=== PATIENT | male | born 1970 | race Caucasian/White ===

== ENCOUNTER 2022-04-07 15:12 | Emergency (ER) | payer BC, SELFPAY ==
[2022-04-07 15:14] VITALS: BP 158/100; PULSE 105; RESP 14; TEMP 36.8; O2SAT 98; BMI 30.4
--- NOTE | 2022-04-07 15:23 | RAD_ITS ---
EXAM: XR CHEST, 1 VIEW CLINICAL INDICATION: sob TECHNIQUE: Frontal view of the chest. This report was created using [employer] report generation technology. COMPARISON: None. FINDINGS: LUNGS AND PLEURAL SPACES: Unremarkable. No consolidation or edema. No pneumothorax. No effusion. HEART: Unremarkable. Cardiac silhouette not enlarged. MEDIASTINUM: Central airways and mediastinal contour are unremarkable. BONES/JOINTS: Unremarkable. SOFT TISSUES: Unremarkable. RAD/Chest 1 View (Portable) IMPRESSION: No radiographic evidence of acute cardiopulmonary disease. Electronically Signed: Malik Slade MD at 16:22 EDT ,
--- NOTE | 2022-04-07 15:23 | CT_ITS ---
EXAM: CT HEAD WITHOUT INTRAVENOUS CONTRAST CLINICAL INDICATION: confusion TECHNIQUE: Multiple axial images were obtained of the head without intravenous contrast. This CT exam was performed using one or more of the following dose reduction techniques: automated exposure control, adjustment of the mA and/or kV according to patient size, and/or use of iterative reconstruction technique. This report was created using [employer] report generation technology. COMPARISON: None. FINDINGS: BRAIN AND EXTRA-AXIAL SPACES: Unremarkable. No intra- or extra-axial hemorrhage. No evidence of acute infarct. No intracranial mass or mass effect. There is preservation of the rodrigues/white matter interface. Posterior fossa structures are unremarkable. Ventricles are appropriate for age. No hydrocephalus. Basal cisterns are patent. BONES/JOINTS: Unremarkable. No discrete lytic or blastic abnormalities. SINUSES: There is retention cyst or polyp in the right maxillary sinus. MASTOID AIR CELLS: Unremarkable. Clear. ORBITS: Visualized globes, extraocular muscles, optic nerves and retrobulbar fat appear unremarkable. CT/Brain/Head without Contrast IMPRESSION: No acute findings in the head/brain. Electronically Signed: Malik Slade MD at 16:22 EDT ,
--- NOTE | 2022-04-07 15:23 | EKG12_ITS ---
Test Reason : Blood Pressure : / mmHG Vent. Rate : 108 BPM Atrial Rate : 108 BPM P-R Int : 148 ms QRS Dur : 096 ms QT Int : 366 ms P-R-T Axes : 023 -05 020 degrees QTc Int : 490 ms Sinus tachycardia Otherwise normal ECG Confirmed by RADHA GRULLON, TEZ ([id number]), editor newspaper CYNDI SCHUSTER ([id number]) on 04/10/2022 10:49:52 AM Referred By: ISAI Confirmed By:TEZ GARCIA MD
--- NOTE | 2022-04-07 15:32 | EDS_ITS ---
HPI History of Present Illness Chief Complaint: Mental Health Informant: patient and spouse/S.O. Narrative Narrative: Patient brought in by for psychiatric evaluation. He has a history of bipolar disorder and hypertension. He reportedly stopped his medication about 3 weeks ago. He states he chose to stop medication himself. states he has missed his last several doctors appointments and psychiatric appointments. He reports having problems with his memory as well as feeling generalized weakness since stopping his medication. He denies thoughts of hurting himself or anyone else. He does report difficulty with sleep. states that his boss called her twice in the last week stating they found him just sitting in his car and may have been there for several hours. [facility] Medical History (Updated 04/07/22 @ 18:[address] Cecy Mcgill MD) Bipolar disorder Hypertension Home Medications amlodipine 5 mg PO DAILY 04/07/22 [History Last Taken Unknown] lamotrigine [Lamictal] 200 mg PO DAILY 04/07/22 [History Last Taken Unknown] olanzapine 5 mg PO QHS 04/07/22 [History Last Taken Unknown] Allergy/AdvReac Type Severity Reaction Status Date / Time No Known Allergies Allergy Verified 04/07/22 15:13 Surgical History no surgical history no surgical history Social History Smoking Status: Never smoker ROS [facility] ED Constitutional Constitutional ED: Denies chills or fever(s) Eyes Eyes: Denies change in vision ENT ENT ED: Denies sore throat Cardiovascular Cardiovascular: Denies chest pain Respiratory/Chest Respiratory/Chest: Denies cough or dyspnea Gastrointestinal Gastrointestinal: Denies abdominal pain, nausea or vomiting Genitourinary Genitourinary ED: Denies dysuria Musculoskeletal Musculoskeletal: Denies back pain or neck pain Integumentary Denies rash Neurologic Neurologic: Reports weakness; Denies headache(s) Psychiatric Psychiatric: Reports depression; Denies anxiety, suicidal ideation or suicidal thoughts Allergic/Immunologic Allergic/Immunologic ED: Denies urticaria EXAM Physical Exam Const Vital Signs: 04/07/22 15:14 04/07/22 17:36 04/07/22 18:23 Temperature 98.2 F Temperature Source Temporal Pulse Rate 105 H 88 92 Respiratory Rate 14 12 18 Blood Pressure 158/100 H 148/76 H 158/110 H Blood Pressure Mean 119 100 126 Pulse Ox 98 98 99 Oxygen Delivery Method Room Air Room Air 04/07/22 19:09 Temperature Temperature Source Pulse Rate 78 Respiratory Rate 14 Blood Pressure 142/82 H Blood Pressure Mean 102 Pulse Ox 98 Oxygen Delivery Method Room Air Positive well nourished and well developed General Appearance ED: well developed HEENT Reports moist mucous membranes Eyes PERRL and EOMs intact bilaterally Neck supple Chest Wall inspection of chest normal and palpation of chest normal Resp normal respiratory effort and clear to auscultation bilaterally Cardio regular rate and regular rhythm GI non-tender Palpation: soft Extremity normal to inspection Neuro oriented x3 Neuro Narrative: No focal neurologic deficits. Sensorium / Orientation: alert Psych Psych Narrative: Flat affect. Poor eye contact. Not forthcoming with information. Mood & Affect: depressed Skin no rashes or lesions noted MDM MDM MDM Narrative Medical decision making narrative: Chest x-ray, head CT, EKG obtained. Lab work and urinalysis ordered. Lab Data Attestation: I reviewed the patient's lab results. Labs: Laboratory Results - last 24 hr 04/07/22 04/07/22 04/07/22 15:30 15:30 15:30 WBC 9.1 RBC 4.60 Hgb 13.8 Hct 40.9 MCV 88.9 MCH 30.0 MCHC 33.7 RDW Std Deviation 39.3 RDW Coeff of Marylou 12.1 Plt Count 317 MPV 10.6 Immature Gran % (Auto) 0.200 Neut % (Auto) 70.0 Lymph % (Auto) 21.6 Dickson % (Auto) 6.9 Eos % (Auto) 1.0 Baso % (Auto) 0.3 Absolute Neuts (auto) 6.4 Absolute Lymphs (auto) 1.97 Nucleated RBC % 0 Sodium 141 Potassium 3.1 L Chloride 107 Carbon Dioxide 29.0 Anion Gap 5 BUN 23 H Creatinine 0.91 Estim Creat Clear Calc 97.12 Est GFR (MDRD) Af Amer 114 Est GFR (MDRD) Non-Af 94 BUN/Creatinine Ratio 25.4 H Glucose 105 Calcium 9.4 Total Bilirubin 0.50 Direct Bilirubin 0.11 AST 15 ALT 24 Alkaline Phosphatase 74 Total Protein 7.7 Albumin 4.1 Globulin 3.6 Urine Color Urine Clarity Urine pH Ur Specific [place] Urine Protein Urine Glucose (UA) Urine Ketones Urine Occult Blood Urine Nitrite Urine Bilirubin Urine Urobilinogen Ur Leukocyte Esterase Urine RBC Urine WBC Ur Squamous Epith Cells Urine Bacteria Urine Mucus Urine Opiates Screen Urine Methadone Screen Ur Barbiturates Screen Ur Phencyclidine Scrn Ur Amphetamines Screen MDMA (Ecstasy) Screen U Benzodiazepines Scrn [place] Urine Cocaine Screen U Cannabinoids Screen Ur Drug Screen Comment Ethyl Alcohol < 3.0 04/07/22 04/07/22 04/07/22 15:30 17:00 17:00 WBC RBC Hgb Hct MCV MCH MCHC RDW Std Deviation RDW Coeff of Marylou Plt Count MPV Immature Gran % (Auto) Neut % (Auto) Lymph % (Auto) Dickson % (Auto) Eos % (Auto) Baso % (Auto) Absolute Neuts (auto) Absolute Lymphs (auto) Nucleated RBC % Sodium Potassium Chloride Carbon Dioxide Anion Gap BUN Creatinine Estim Creat Clear Calc Est GFR (MDRD) Af Amer Est GFR (MDRD) Non-Af BUN/Creatinine Ratio Glucose Calcium Total Bilirubin Direct Bilirubin AST ALT Alkaline Phosphatase Total Protein Albumin Globulin Urine Color Yellow Urine Clarity Clear Urine pH 6.0 Ur Specific [place] 1.025 Urine Protein 30 H Urine Glucose (UA) Normal Urine Ketones 5 H Urine Occult Blood Negative Urine Nitrite Negative Urine Bilirubin Negative Urine Urobilinogen Normal Ur Leukocyte Esterase Negative Urine RBC 0 SEEN Urine WBC 0 SEEN Ur Squamous Epith Cells 0 SEEN Urine Bacteria 0 SEEN Urine Mucus 1+ Urine Opiates Screen NEGATIVE Urine Methadone Screen NEGATIVE Ur Barbiturates Screen NEGATIVE Ur Phencyclidine Scrn NEGATIVE Ur Amphetamines Screen NEGATIVE MDMA (Ecstasy) Screen NEGATIVE U Benzodiazepines Scrn NEGATIVE [place] < 0.20 L Urine Cocaine Screen NEGATIVE U Cannabinoids Screen NEGATIVE Ur Drug Screen Comment Ethyl Alcohol Radiography Chest X-Ray - ED: 1 View, Read by ED Physician and No Acute Disease Diagnostic Testing: Clinical Impression(s) from Imaging Studies Brain CT 04/07/22 15:23 IMPRESSION: No acute findings in the head/brain. Electronically Signed: Malik Slade MD at 16:22 EDT , Chest X-Ray 04/07/22 15:23 IMPRESSION: No radiographic evidence of acute cardiopulmonary disease. Electronically Signed: Malik Slade MD at 16:22 EDT , EKG Initial EKG: Attestation: I personally reviewed and interpreted this EKG as follows: Interpretation: Sinus Tachycardia (Sinus tach at 108. No acute ischemia.) Treatment and Re-Evaluation Narrative: I was able to review the patient's last evaluation by nurse practitioner [facility] for psychiatric care. This was from July 2021. Patient had been hospitalized with depression symptoms and psychotic features. He had reportedly been stable on his medications. No adjustments were made at that time. Lab work today is largely unremarkable other than a potassium low at 3.1. Urinalysis shows 5 ketones but no sign of infection. Tox screen is negative. EtOH is negative. Because the patient had been on lithium previously I did check a level to ensure it was not elevated and it is actually less than 0.2. Patient is evaluated by social work. He does admit to them that he is hearing voices at times. He seems to be responding to internal stimuli. They do feel he would benefit from placement. Patient has been accepted at [facility]. Discharge Plan Triage Chief Complaint: Mental Health ED Provider: Cecy Mcgill Dx/Rx/DC Orders Clinical Impression: Bipolar disorder, Hypokalemia Prescriptions: No Action lamotrigine [Lamictal] 200 mg Tablet 200 mg PO DAILY RF: 0 olanzapine 5 mg Tablet 5 mg PO QHS RF: 0 amlodipine 5 mg Tablet 5 mg PO DAILY RF: 0 Primary Care Provider: Estuardo Zheng Referrals: Estuardo Zheng MD [Primary Care Provider] - Disposition Disposition: Psychiatric Hospital or Unit Discharge Location: [facility]
[2022-04-07] MEDS: 0.9% Normal Saline 1,000 ML 150 ML IV (15:49)
[2022-04-07 15:52] LABS: Absolute Lymphocyte Count 1.97 X10^3/uL (0.83-4.51); Absolute Neutrophil Count 6.4 X10^3/uL (2.0-7.7); Basophil# 0.03 X10^3/uL; Basophil% 0.3 % (0-1); Eosinophil# 0.09 X10^3/uL; Hematocrit 40.9 % (40-54); Hemoglobin 13.8 g/dL (13.0-16.5); Lymphocyte # 1.97 X10^3/ul (0.83-4.51); Lymphocyte % 21.6 % (19-41); Mean Corp Hgb Conc 33.7 g/dL (32-36); Mean Corpuscular Volume 88.9 fL (80-94); Mean Platelet Vol. 10.6 fl (6.2-12.0); Monocyte# 0.63 X10^3/uL; Monocyte% 6.9 % (0-10); NRBC Flagged by Analyzer 0 % (0-5); Neutrophil # 6.37 X10^3/uL (2.7-7.7); Platelet Count 317 K/mm3 (150-450); RBC Distribution Width CV 12.1 % (11.6-14.6); RBC Distribution Width SD 39.3 fl (35.1-43.9); White Blood Count 9.1 K/mm3 (4.4-11.0)
[2022-04-07 16:49] LABS: Alcohol, Blood (Medical)-Serum < 3.0 mg/dL; Lithium < 0.20 mmol/L (0.60-1.20)
[2022-04-07 16:53] LABS: AST(SGOT) 15 U/L (15-37); Alanine Aminotransfer ALT/SGPT 24 U/L (16-61); Albumin, Serum 4.1 g/dL (3.2-5.0); Alkaline Phosphatase 74 U/L (45-117); Anion Gap 5 (5-15); BUN 23 mg/dL (7-18); BUN/Creat Ratio 25.4 RATIO (10-20); Bilirubin, Direct 0.11 mg/dL (0.00-0.30); Calcium,Total 9.4 mg/dL (8.5-10.1); Chloride 107 mmol/L (98-107); Creatinine, Serum 0.91 mg/dL (0.70-1.30); EST Glomerular Filtration Rate 94 mL/min (>60); Est Glom Filt Rate - Afr Amer 114 mL/min (>60); Estimated Creatinine Clearance 97.12 ml/min; Globulin 3.6 g/dL (2.2-4.2); Glucose 105 mg/dL (74-106); Potassium 3.1 mmol/L (3.5-5.1); Protein, Total 7.7 g/dL (6.4-8.2); Sodium Level 141 mmol/L (136-145)
[2022-04-07 17:04] LABS: Bacteria 0 SEEN /hpf (None Seen); Red Blood Cells-Urine 0 SEEN /hpf (0-5); Squamous Epithelial Cells - UA 0 SEEN /hpf (0-5); White Blood Cells 0 SEEN /hpf (0-5)
[2022-04-07 17:07] LABS: Color, Urine Yellow (Yellow); Glucose, Dipstick Normal (Normal); Ketone-Dipstick 5 mg/dl (Negative); Leukocyte Esterase-Dipstick Negative /ul (Negative); Nitrite-Dipstick Negative (Negative); Occult Blood-Urine Negative /ul (Negative); Protein-Dipstick 30 mg/dl (Negative); Specific Gravity, Urine 1.025 (1.002-1.030); Urine Bilirubin Dipstick Negative (Negative); Urine Clarity Clear (Clear); Urine Urobilinogen Normal (Normal)
[2022-04-07 17:21] LABS: Amphetamine Urine VISTA NEGATIVE (<1000 ng/mL); Barbiturate Urine VISTA NEGATIVE (< 200 ng/mL); Benzodiazepine Urine VISTA NEGATIVE (< 200 ng/mL); Cocaine Urine VISTA NEGATIVE (< 300 ng/mL); Ecstacy Urine VISTA NEGATIVE (< 500 ng/mL); Methadone Urine VISTA NEGATIVE (< 300 ng/mL); PCP Urine VISTA NEGATIVE (< 25 ng/mL); THC Urine VISTA NEGATIVE (< 50 ng/mL); Vista UDS pH Range 5
[2022-04-07] MEDS: Potassium Chloride Oral Tablet 20 MEQ 40 MEQ PO (17:29)
--- NOTE | 2022-04-07 17:33 | CM.ED ---
Social Work Assessment Social Work Psychiatric Assessment Reason for consult: Mental Health Informant(s): Pt, pt?s Leigha, Chart Review Chief Complaint: Pt states that he is ?not feeling the greatest.? SW asked pt to elaborate on this, pt states he ?can?t tell more about that.? SW asked pt if he could elaborate on his symptoms and pt stated ?not really.? Marital/Social History: Marital Status: Identified Gender: Male Sexual Orientation: Heterosexual Living Situation: Pt states he lives with his and son in a house. His son is 21 years old. Support/Resources: Pt states that his is good support History: None Education and Employment History: Pt states that he did not complete high school. Pt states that the highest grade he completed was 10th grade. Pt states he had ?some learning disabilities.? Mental Health Treatment/History: Pt states that he has seen a counselor before but it has ?been a while.? Pt states he doesn?t remember the agency. Pt states that he has been to [facility] before and has been to [facility] before. Pt states that he was at [facility] in November 2020 and was there for 6 weeks. SW asked pt what led up to him getting placed at [facility] and pt states ?Mental Issues.? Pt states that he has been diagnosed with Bipolar. Pt states that he should take medication but has not. Pt states he is not sure what he is supposed to take and states it has ?been a while? since he took his medication. Triggers/Stressors: At first pt states ?not really.? Pt then states ?coming to the Emergency Department.? Pt states that he is not able to take care of himself right now. Per ED Summary, ?pt?s states that his boss called her twice in the last week stating they found him just sitting in his car and may have been there for several hours.? Coping Skills: Pt states ?not really.? Pt then states that he likes to go outside. Abuse Issues: Pt states ?no.? Substance Abuse Hx: Pt states he has history of ETOH and Tobacco use. Pt states he is not currently using any substances. Pt states ?it has been a long time? since he last used. Risk to Self/Others: ? Suicidal: Pt states none currently. Pt states he does have history of thoughts and plans. Pt states it has ?been a while? since he had any thoughts or plans, states that it was before he went to [facility]. Pt stated that he was going commit suicide by putting a belt around neck. SW asked pt if he actually put the belt around his neck and pt shook his no. ? Homicidal: None ? Violence: None Mental Status Exam: Orientation: Pt is alert and orientated x4 Memory: Poor Appearance/General Behavior: Clean, Directable, Pt with periods of intense eye contact. Pt appeared to be responding to internal stimuli. Mood/Affect: Depressed, flat affect Communication Pattern: Pt with delayed responses to questions and was very vague in responses and answers. Pt does not initiate. Thought Process: Hallucinations A/V, Paranoid. SW asked pt if he was hearing or seeing things not there. Pt initially responded no but had a delayed response. Pt was asked again, specifically if he was hearing voices and pt stated ?some.? SW asked pt what the voices were telling him and pt would not answer. Pt would also look to the right of him and up the wall. Pt would say a word and SW would ask if he needed to tell this worker something and pt did not respond. Pt states he has never heard voices before. General Intellectual Functioning: Average Judgment: Poor Insight: Poor Pt gave permission for SW to speak with his . SW spoke with pt?s , Leigha. Leigha states that pt has not been taking his medications and has been confused. Leigha states that pt was found in car at work and was believed to have been there for 2-3 hours. Leigha states pt has loss reality again and states pt has been refusing to take medications. Leigha states that pt was at [facility]. Leigha states that pt has been to [facility] twice for Psychiatric Hospitalization and the first time pt stated in ED and was there for 6 weeks. The second time an ambulance took pt to [facility] and was there for 3-4 weeks. Leigha states that pt was not probated and pt stayed voluntarily. Leigha states that after pt was at [facility], pt was better and completed Electroconvulsive Therapy. Leigha states pt also saw Dr. Zee at [facility] but pt has missed last few appointments. Leigha states that pt began to line things up and pt has stated that he thinks he is shrinking. Leigha states that pt is convinced he?s dying. Leigha state that pt is not sleeping well at night and thinks that pt has night and day mixed up. ANTONIETA spoke with MD Mcgill who agrees with recommendation of Inpatient Psychiatric Hospitalization for Medication Management and Crisis Stabilization. Plan: Inpatient Psychiatric Hospitalization Luisa Sullivan [employer]ROL [employer]GEANT [employer] OFFICE, RN RESEARCH
[2022-04-07 17:36] VITALS: BP 148/76; PULSE 88; RESP 12; O2SAT 98
--- NOTE | 2022-04-07 17:36 | CM.ED ---
Addendum entered by Luisa Sullivan 04/07/22 19:09: SW received call from [facility] with [facility] requesting updated vital and COVID test. Telephone call to [facility] who confirms they received referral and will review. Original Note: Social Work Note Telephone call to [facility] and they have open beds. Referral faxed to [facility]. Telephone call to [facility] and they have open beds. Referral faxed to [facility]. Telephone call to [facility] and they have open beds. Referral faxed to [facility]. Luisa Sullivan JEWEL SETTER, RAIL TRANSPORTATION OPERATOR
[2022-04-07 17:44] LABS: Mucous, Urine 1+ /hpf (<or=2+)
[2022-04-07 18:23] VITALS: BP 158/110; PULSE 92; RESP 18; O2SAT 99
[2022-04-07 19:09] VITALS: BP 142/82; PULSE 78; RESP 14; O2SAT 98
--- NOTE | 2022-04-07 20:29 | CM.ED ---
Addendum entered by Luisa Sullivan 04/07/22 20:31: Kerline, [employer], is securing transport. Giovanna GRIFFIN Original Note: Per [facility] Shannen Patient has been accepted at [facility]. Accepting is Dr. Givens. Phone number for RN to RN is [phone] ask for [facility]. Patient will be going to [facility]. SW updated patient and his that he is going to [facility]. SW provided them with phone number and address for [facility]. ANTONIETA updated MD and RN. ANTONIETA called [facility] and [facility] and advise that placement was no longer needed. Plan: Inpatient psych at [facility].
--- NOTE | 2022-04-07 20:31 | ED.RN ---
PHYSICIANS NOTIFIED AT 2026. 2 HOUR ETA AT TIME OF CALL.
[2022-04-07 21:23] VITALS: BP 150/68; PULSE 78; RESP 14; TEMP 37.2; O2SAT 99
--- NOTE | 2022-04-07 21:24 | ED.RN ---
Addendum entered by Momo Estrella 04/07/22 21:30: rn at [facility] states they would not have an issue with medication, as long as pt. not in restriants Original Note: report called to [facility]. spoke to rakesh farias. checked if we would medicate pt. prior to transport if they would have an issue with it.
[2022-04-07] MEDS: Ziprasidone HCl 20 MG Capsule PO (21:47)
== END 2022-04-07 22:34 ==
PROVIDERS: Emergency Provider Emergency Medicine; PCP Family Medicine; Visit Provider Emergency Medicine
DX: F31.9 Bipolar disorder, unspecified (principal); E87.6 Hypokalemia; I10 Essential (primary) hypertension; Z91.14 Patient's other noncompliance with medication regimen; Z91.19 Patient's noncompliance with other medical treatment and regimen; Z79.899 Other long term (current) drug therapy
CPT/HCPCS: 70450; 71045; 80048; 80076; 80178; 80307; 81001; 82077; 85025; 87811; 93005; 96360; 96361; 99285; J7030; A4216